=== PATIENT | male | born 1965 | race Caucasian/White ===

== ENCOUNTER 2025-07-27 18:14 | Inpatient (IN) | payer BC, SELFPAY ==
[2025-07-27] VITALS (8 sets, daily range): BP systolic 60–176; BP diastolic 68–94; BMI 26.3; BMI 25.4
--- NOTE | 2025-07-27 12:49 | ED.GENMED ---
History of Present Illness
<Kareen Torres PA-C - Last Filed: 07/27/25 14:49>
General
Chief Complaint: Abdominal Symptoms
Time Seen by Provider: 07/27/25 12:25
History of Present Illness
History of Present Illness:
see MDM
Phy Exam
<Kareen Torres PA-C - Last Filed: 07/27/25 14:49>
Physical Exam
Physical Exam:
see MDM
Course
<Kareen Torres PA-C - Last Filed: 07/27/25 14:49>
Orders/Labs/Results
Orders:
Orders
07/27/25 12:41
0.9% Sodium Chloride 1000 ml [Nss] 1,000 ml IV BOLUS
Piperacillin/Tazo 3.375 Gram [Zosyn] 3.375 gram in 50 ml IV NOW
07/27/25 12:55
Complete Blood Count/With Diff Urgent
Comprehensive Metabolic Panel Urgent
Lipase Urgent
07/27/25 13:51
CT Abd/Pel (IV only)-[facility] only Urgent
Comment:
Reason For Exam: acute kemar, concerning US; requested by surgery
07/27/25 Dinner
Regular
At Your Request: Full Participation
07/27/25 15:25
PT/INR [Prothrombin Time] Urgent
Comment: [facility] procedure
07/27/25 16:10
Fentanyl Citrate/Pf [Sublimaze] 100 mcg .ROUTE .STK-MED ONE
Midazolam HCl [Versed] 2 mg .ROUTE .STK-MED ONE
07/27/25 16:12
Lidocaine 2% [Xylocaine 2% Mdv] 20 ml .ROUTE .STK-MED ONE
07/27/25 16:30
Fluid Culture with Gram Stain Routine
ZAINA Source: Bile
Specimen Description:
Date Specimen was Collected: 07/27/25
Time Specimen was Collected: 16:30
Comment: intraprocedure cholecystostomy tube placement
07/27/25 16:42
Activity As Directed
Activity Level: Bedrest for limited time
Bedrest duration in hours then activity as indicated above:: 1
Comment: after bedrest then resume previous activity orders
Drains As Directed
Type: Cholecystostomy
To gravity: Yes
Comment: record output from tube every shift
Intake/ Output As Directed
Frequency: q12h
Comment: RECORD TUBE OUTPUT EVERY SHIFT
Surgical Procedure As Directed
Surgical Procedure: kemar tube
Vital Signs As Directed
Frequency: Other
Additional Instructions:: q15min x4, q30min x2, q1h x2 then routine if stable
07/27/25 16:43
Wound Care As Directed
Location of Wound: RUQ
Treatment of Wound: Change dressing q3days PRN. Clean round the tube with sterile gauze and sterile 0.9%
sodium chloride. Dress with drain sponge/ 4x4's and tape. Position tube so it does not
kink.
If tube falls out cover site with gauze/tegaderm then call [facility] at ext [phone] between
[phone] Sunday-Sunday. Schedule replacement ALAN. Call hospital heater planer operator after hours
and weekends and ask for Interventional Radiologist sales and distribution clerk to be beeped.
Any questions please call [facility] at ext [phone]
07/27/25 17:41
Admit Patient As Directed
Co-Sign Provider:
Level of Care: Inpatient admission
Assign to:: Medical/Surgical
Physician / Group: Dr. Gabriel
Diagnosis: Acute cholecystitis
Reason for Hospitalization: Acute cholecystitis
Expected length of stay greater than two midnights?: Yes
ELOS- Estimated Length of Stay in days: 2
I certify the patient meets the requirements for IP care: Yes
Code Status As Directed
Resuscitation Status: Full Code
Acetaminophen [Tylenol] 650 mg PO Q4HPRN PRN
HYDROmorphone [Dilaudid] 0.5 mg IV Q2HPRN PRN
Ondansetron Injectable [Zofran] 4 mg IV Q6HPRN PRN
Activity As Directed
Activity Level: Out of Bed-Early Mobility
Drains As Directed
Type: Biliary
To gravity: Yes
Intake/ Output As Directed
Frequency: Per unit guidelines
Vital Signs As Directed
Frequency: Per unit guidelines
PRN Pain Medication Management As Directed
May give lesser potent ordered pain med per pt: Yes
preference::
Protocol:: Medication orders for pain may be administered in a
manner that supports deferring to patient preference
when the pt is:
- Requesting an ordered lesser potent pain medication.
Least to most potent pain medications are defined
as: acetaminophen < NSAID < tramadol < opioids
(morphine, oxycodone, hydromorphone).
- Requesting a lesser dose of the same medication IF
ORDERED.
- Requesting a less intrusive route of administration
if both routes are prescribed by the provider (PO <
IV).
07/27/25 17:42
Rx Incentive Spirometry [RESP] Routine
Frequency: q1h while awake
# of times per hour: 10
DX Deep Vein Thrombosis Video Routine
07/27/25 18:00
Enoxaparin Sodium [Lovenox] 40 mg SC QPM
07/27/25 20:00
Piperacillin/Tazo 3.375 Gram [Zosyn] 3.375 gram in 50 ml IV Q6H
07/28/25 06:00
Complete Blood Count/With Diff IN AM
Comprehensive Metabolic Panel IN AM
Abnormal Lab Results
07/27/25
12:55
MPV 10.6 H fL
(7.4-10.4)
Glucose 102 H mg/dl
(70-99)
07/27/25 12:55
07/27/25 12:55
Vital Signs
Initial and Last Documented VS:
Initial Vital Signs
Temp Pulse Resp BP Pulse Ox
97.8 F 56 16 176/86 98
07/27/25 12:13 07/27/25 12:13 07/27/25 12:13 07/27/25 12:13 07/27/25 12:13
Last Documented Vital Signs
Temp Pulse Resp BP Pulse Ox
97.9 F 59 16 126/68 99
07/27/25 16:55 07/27/25 18:00 07/27/25 18:00 07/27/25 18:00 07/27/25 18:00
<Cooper Green, - Last Filed: 07/27/25 20:43>
Orders/Labs/Results
Orders:
Orders
07/27/25 12:41
0.9% Sodium Chloride 1000 ml [Nss] 1,000 ml IV BOLUS
Piperacillin/Tazo 3.375 Gram [Zosyn] 3.375 gram in 50 ml IV NOW
07/27/25 12:55
Complete Blood Count/With Diff Urgent
Comprehensive Metabolic Panel Urgent
Lipase Urgent
07/27/25 13:51
CT Abd/Pel (IV only)-[facility] only Urgent
Comment:
Reason For Exam: acute kemar, concerning US; requested by surgery
07/27/25 Dinner
Regular
At Your Request: Full Participation
07/27/25 15:25
PT/INR [Prothrombin Time] Urgent
Comment: [facility] procedure
07/27/25 16:10
Fentanyl Citrate/Pf [Sublimaze] 100 mcg .ROUTE .STK-MED ONE
Midazolam HCl [Versed] 2 mg .ROUTE .STK-MED ONE
07/27/25 16:12
Lidocaine 2% [Xylocaine 2% Mdv] 20 ml .ROUTE .STK-MED ONE
07/27/25 16:30
Fluid Culture with Gram Stain Routine
ZAINA Source: Bile
Specimen Description:
Date Specimen was Collected: 07/27/25
Time Specimen was Collected: 16:30
Comment: intraprocedure cholecystostomy tube placement
07/27/25 16:42
Activity As Directed
Activity Level: Bedrest for limited time
Bedrest duration in hours then activity as indicated above:: 1
Comment: after bedrest then resume previous activity orders
Drains As Directed
Type: Cholecystostomy
To gravity: Yes
Comment: record output from tube every shift
Intake/ Output As Directed
Frequency: q12h
Comment: RECORD TUBE OUTPUT EVERY SHIFT
Surgical Procedure As Directed
Surgical Procedure: kemar tube
Vital Signs As Directed
Frequency: Other
Additional Instructions:: q15min x4, q30min x2, q1h x2 then routine if stable
07/27/25 16:43
Wound Care As Directed
Location of Wound: RUQ
Treatment of Wound: Change dressing q3days PRN. Clean round the tube with sterile gauze and sterile 0.9%
sodium chloride. Dress with drain sponge/ 4x4's and tape. Position tube so it does not
kink.
If tube falls out cover site with gauze/tegaderm then call [facility] at ext [phone] between
[phone] Sunday-Sunday. Schedule replacement ALAN. Call hospital heater planer operator after hours
and weekends and ask for Interventional Radiologist sales and distribution clerk to be beeped.
Any questions please call [facility] at ext [phone]
07/27/25 17:41
Admit Patient As Directed
Co-Sign Provider:
Level of Care: Inpatient admission
Assign to:: Medical/Surgical
Physician / Group: Dr. Gabriel
Diagnosis: Acute cholecystitis
Reason for Hospitalization: Acute cholecystitis
Expected length of stay greater than two midnights?: Yes
ELOS- Estimated Length of Stay in days: 2
I certify the patient meets the requirements for IP care: Yes
Code Status As Directed
Resuscitation Status: Full Code
Acetaminophen [Tylenol] 650 mg PO Q4HPRN PRN
HYDROmorphone [Dilaudid] 0.5 mg IV Q2HPRN PRN
Ondansetron Injectable [Zofran] 4 mg IV Q6HPRN PRN
Activity As Directed
Activity Level: Out of Bed-Early Mobility
Drains As Directed
Type: Biliary
To gravity: Yes
Intake/ Output As Directed
Frequency: Per unit guidelines
Vital Signs As Directed
Frequency: Per unit guidelines
PRN Pain Medication Management As Directed
May give lesser potent ordered pain med per pt: Yes
preference::
Protocol:: Medication orders for pain may be administered in a
manner that supports deferring to patient preference
when the pt is:
- Requesting an ordered lesser potent pain medication.
Least to most potent pain medications are defined
as: acetaminophen < NSAID < tramadol < opioids
(morphine, oxycodone, hydromorphone).
- Requesting a lesser dose of the same medication IF
ORDERED.
- Requesting a less intrusive route of administration
if both routes are prescribed by the provider (PO <
IV).
07/27/25 17:42
Rx Incentive Spirometry [RESP] Routine
Frequency: q1h while awake
# of times per hour: 10
DX Deep Vein Thrombosis Video Routine
07/27/25 18:00
Enoxaparin Sodium [Lovenox] 40 mg SC QPM
07/27/25 20:00
Piperacillin/Tazo 3.375 Gram [Zosyn] 3.375 gram in 50 ml IV Q6H
07/28/25 06:00
Complete Blood Count/With Diff IN AM
Comprehensive Metabolic Panel IN AM
Abnormal Lab Results
07/27/25
12:55
MPV 10.6 H fL
(7.4-10.4)
Glucose 102 H mg/dl
(70-99)
07/27/25 12:55
07/27/25 12:55
Vital Signs
Initial and Last Documented VS:
Initial Vital Signs
Temp Pulse Resp BP Pulse Ox
97.8 F 56 16 176/86 98
07/27/25 12:13 07/27/25 12:13 07/27/25 12:13 07/27/25 12:13 07/27/25 12:13
Last Documented Vital Signs
Temp Pulse Resp BP Pulse Ox
97.9 F 59 16 126/68 99
07/27/25 16:55 07/27/25 18:00 07/27/25 18:00 07/27/25 18:00 07/27/25 18:00
<Kareen Torres PA-C - Last Filed: 07/27/25 14:49>
MDM/Problems Addressed
Differential Diagnosis Includes:
se MDM
MDM/Problems Addressed:
Note:
CHIEF COMPLAINT(S)
Abdominal pain and vomiting.
HISTORY OF PRESENT ILLNESS
The patient is a 59-year-old male healthy no [facility] coming from outpatient who presents with abdominal pain and vomiting. Approximately 10 days ago, the patient experienced an episode of abdominal pain followed by vomiting, which he initially
attributed to something he ate. The pain subsided after vomiting, and he was able to return to sleep. The following day he was asymptomatic. Ten days later, after a meal including chicken pot pie, the patient experienced discomfort and pain in the
abdomen around 10 PM, with subsequent vomiting starting around 11:30 PM. The vomiting continued with bile being expelled initially, followed by dinner contents and then bile again. The pain described was dull rather than sharp, and the patient
experienced relief by moving around, suggesting possible gas or pressure-related discomfort. The patient reported no fever or chills but mentioned cold hands and feet. He did not take any medication for pain but chewed Pepto-Bismol during the
episode. Currently, the patient reports being asymptomatic, except for mild discomfort during an ultrasound. He denies any significant medical history or regular use of medications.
PAST MEDICAL AND SURGICAL HISTORY
The patient reports no history of medical problems and is not currently on medication.
PHYSICAL EXAM
GENERAL: Alert , in no apparent distress very well-appearing
EYE: pupils equal and reactive
NECK: Supple
ENT: o/p clr, mmm.
CARDIAC: Regular rate and rhythm .
LUNGS: Clear breath sounds bilaterally, no acute respiratory distress, no wheezes/rales/rhonchi
ABDOMEN: Soft, no significant right upper quadrant tenderness, negative Bates sign, no r/g, no cvat, normal bowel sounds
NEUROLOGICAL: Alert and oriented, no focal neuro deficits
SKIN: Warm and dry, skin intact.
MUSCULOSKELETAL: No edema, well perfused. neg gamal's sign
PSYCH: Normal and appropriate interaction.
- Nursing notes reviewed and vital signs reviewed.
PLAN
- Arrange for an urgent consultation with the on-call general surgeon to evaluate for cholecystectomy due to findings suggestive of acute cholecystitis with gallstones and gallbladder wall thickening.
- Order a computed tomography (CT) scan of the abdomen to assess the extent of inflammation and to rule out complications.
- Initiate empiric intravenous antibiotics to address suspected gallbladder infection.
- Administer intravenous fluids for rehydration and to maintain hydration status until possible surgical intervention.
- Keep the patient nil per os (NPO) in anticipation of possible surgical intervention within the next 24 hours.
DIFFERENTIAL DIAGNOSIS
The Differential Diagnosis includes, in no particular order and is not limited to:
1. Acute cholecystitis
2. Biliary colic
3. Gastritis
4. Pancreatitis
5. Peptic ulcer disease
6. Gallstone ileus
7. Gastroenteritis
8. Hepatic abscess
9. Perforated viscus
10. Gastroesophageal reflux disease (GERD)
59-year-old healthy male here from outpatient ultrasound for signs of acute cholecystitis on ultrasound. He is first had pain 10 days ago with vomiting but that resolved for all this time until last night. He had recurrence of right upper quadrant
pain and vomiting several times overnight. Patient now feels much better. His outpatient was ordered by his primary care doctor. Findings are concerning for acute cholecystitis with gallbladder wall thickening, gallstones and Js cholecystic
fluid. I did speak with Dr. Gabriel who is the on-call surgeon who requested a CT scan due to the severity of the appearance on ultrasound. IV Zosyn and IV fluids, n.p.o.
CT done, await read but I did speak with the surgeon on-call who said we could admit to his service. Patient will likely require an IR drain before cholecystectomy
<Kareen Torres PA-C - Last Filed: 07/27/25 14:49>
*Pulse Oximetry
SaO2: 98
Oxygen Mode of Delivery: Room air
Patient hypoxic: no (98)
*Critical Care Note
Total Time (30-74mins, 75-104mins- exclusive of procedures): Not Applicable
ED Attending Note
<Kareen Torres PA-C - Last Filed: 07/27/25 14:49>
-
Portions of this chart may have been created with voice recognition software.� Occasional wrong word or��sound alike� substitutions may have occurred due to the inherent limitations of voice recognition software.
<Cooper Green DO - Last Filed: 07/27/25 20:43>
ED Attending Note
I performed the substantive portion of visit, reviewed & personally made and approve the management plan that is documented in note by myself or TRESSA.: Yes
ED Attending Note:
59-year-old male. Imaging concerning for gallbladder pathology. Consult surgery. Dispo per surgery
Discharge Plan
Departure
Patient Disposition: Admit
Date of Disposition: 07/27/25
Time of Disposition: 14:46
Admit to: Med/Surg
Admit to doctor: angella
Presentation/result/management discussed w/ accepting MD/DO: angella
Condition: Fair
Covid-19: Not Applicable
Discharge Problem:
Acute cholecystitis
Interventions
Interventions:
*Risk Screen - Suicide Last Done: 07/27/25 12:13
*General Assessment Last Done: 07/27/25 12:13
*Neglect/Abuse Screening Last Done: 07/27/25 12:13
*ED- Fall Risk Assessment Last Done: 07/27/25 12:59
*ED COVID-19 Vaccine History Last Done: 07/27/25 19:20
*ED Influenza Vaccine History Last Done: 07/27/25 12:59
*Nursing Disposition Last Done: 07/27/25 19:22
PJ-Csirfv-Mngwpmtxzi Assessment Last Done: 07/27/25 13:02
Discharge Date and Time
Discharge Date/Time: 07/27/25 19:23
[2025-07-27] MEDS: ZOSYN 50 IV ×2 (12:55→20:42)
[2025-07-27] MEDS: NSS 1000 IV (12:55)
[2025-07-27 13:18] LABS: Hematocrit 43.3 % (39.0-52.0); Hemoglobin 14.5 g/dL (13.0-18.0); Mean Corp Hgb Conc. 33.5 g/dL (33.0-37.0); Mean Corpuscular Volume 88.4 fL (80.0-94.0); Nucleated Red Blood Cells % 0 % (-); Platelet Count 253 10^3/uL (130-400); Red Cell Dist. Width 13.1 % (11.5-14.5)
[2025-07-27 13:26] LABS: ALT (SGPT) 19 U/L (0-50); AST (SGOT) 20 U/L (17-59); Albumin 4.1 g/dl (3.5-5.0); Alkaline Phosphatase 65 U/L (38-126); Blood Urea Nitrogen 12 mg/dl (9-20); Calcium 9.0 mg/dl (8.4-10.2); Carbon Dioxide 30 mmol/L (22-30); Chloride 103 mmol/L (98-107); Estimated Creatinine Clearance 84 ml/min; Glucose 102 mg/dl (70-99); Lipase 119 U/L (23-300); Potassium 3.9 mmol/L (3.5-5.1); Sodium 136 mmol/L (135-145); Total Protein 6.4 g/dl (6.3-8.2); eGFR > 60.00
[2025-07-27 15:42] LABS: INR 1.03; PT 13.9 Sec (11.4-14.6)
--- NOTE | 2025-07-27 16:44 | W.PN.UPDATE ---
Update Note
Progress Note Update
- US/fluoro guided placement of 8.5F kemar tube
- Moderately distended gb on ultrasound. Subcostal approach. Aspirated dark bilious fluid, samples sent to the lab.
- Pt tolerated well.
[2025-07-27] MEDS: NORMOSOL-R/PLASMALYTE-A 1000 IV (20:47)
--- NOTE | 2025-07-27 21:46 | TRANSFER ---
Received pt from ED at 1920 dx of acute kemar with RUQ kemar drain to gravity. Drain w bilious output. Pt denied pain/discomfort. VS WNL. Call valiente within reach, bed in lowest position. Family at the bedside.
[2025-07-28] MEDS: ZOSYN 50 IV ×2 (02:14→08:49)
[2025-07-28 07:21] LABS: Hematocrit 42.5 % (39.0-52.0); Hemoglobin 14.0 g/dL (13.0-18.0); Mean Corp Hgb Conc. 32.9 g/dL (33.0-37.0); Mean Corpuscular Volume 87.6 fL (80.0-94.0); Nucleated Red Blood Cells % 0 % (-); Platelet Count 207 10^3/uL (130-400); Red Cell Dist. Width 13.4 % (11.5-14.5)
[2025-07-28 08:03] VITALS: BP 131/78
--- NOTE | 2025-07-28 11:11 | W.PN.GS2 ---
Today's Communication / Plan
-
DC
Assessment / Plan
-
59M PPD1 s/p perc kemar tube for ACC
AFVSS, clinically improved, meets criteria for DC home
Drain care instruction providd by nursing
OK for DC
Subjective Data
-
Date of Service: July 28, 2025
AFVSS, ambulating, voiding, anna PO, pain controlled, denies n/v
Objective Data
-
Intake and Output
07/27/25 07/28/25 07/29/25
06:59 06:59 06:59
Intake Total 645 / 645 50 / 50
Output Total 50 / 50
Balance 595 / 595 50 / 50
Intake:
IV fluids (Total) 545 / 545
IV piggybacks 100 / 100 50 / 50
Output:
Drain Output (Total) 50 / 50
Right Upper Abdomen Biliary 50 / 50
Placed in IR
Other:
Number of approximated LARGE 1
amounts of urine
Vital Signs
Temp Pulse Resp BP Pulse Ox
97.9 F 64 16 131/78 99
07/28/25 08:03 07/28/25 08:03 07/28/25 08:03 07/28/25 08:03 07/28/25 08:03
Lab Results
07/28/25 06:21
07/27/25 12:55
Calcium 9.0 mg/dl (8.4-10.2) 07/27/25 12:55
Total Bilirubin 0.8 mg/dl (0.2-1.3) 07/27/25 12:55
AST 20 U/L (17-59) 07/27/25 12:55
ALT 19 U/L (0-50) 07/27/25 12:55
Alkaline Phosphatase 65 U/L (38-126) 07/27/25 12:55
Total Protein 6.4 g/dl (6.3-8.2) 07/27/25 12:55
Albumin 4.1 g/dl (3.5-5.0) 07/27/25 12:55
Physical Exam
-
Gen: NAD
Abd: soft, minimal ttp. drain with brown liquid output with sediment
Patient has a madrigal catheter: No
Patient has a central line: No
--- NOTE | 2025-07-28 11:12 | W.DS.TRANS ---
DC Summary - Armature Winder
-
Discharge Instructions:
Discharge Diagnosis/Procedures Acute cholecystitis
Diet No restrictions
Activity No strenuous activity
Driving Restrictions No driving for 24 hours
Bathing Restrictions OK to Shower
Wound Care Folow nursing directions for drain/wound care
Instructions:
Stand-Alone Forms:
Changes to Home Medications: No
Discharge Medications:
DC Medications w/original date entered in [employer]
No Meds [No Current Medications] 07/27/25
Home Medication Changes
Pending Results: No
--- NOTE | 2025-07-28 11:16 | CM ---
CM met with pt and spouse bedside- dc order noted
Pt is s/p perc kemar tube placement
Plan to follow up outpt with surgery
Pt and sposue declined VN_ noted they can manage drain care
Nursing will provide instructions
Pt maintains independence
N dc needs noted
Discharge Disposition- home, no needs
[2025-07-28 11:44] VITALS: BP 135/53
== END 2025-07-28 12:30 | disposition home or self-care (01) | DRG 446 ==
LOC: 2 SOUTH 18:14
PROVIDERS: Physician Assistant; Radiology Diagnostic Radiology; ADMITTING PHYSICIAN Surgery; EMERGENCY PHYSICIAN Emergency Medicine
PROC: 0F9430Z Drainage of Gallbladder with Drainage Device, Percutaneous Approach (ICD-10-PCS; 2025-07-27)
DX: K80.00 Calculus of gallbladder with acute cholecystitis without obstruction (principal)
CPT/HCPCS: 47490; 74177; 76700; 80053; 83690; 85025; 85610; 87015; 87070; 87205; 96361; 96374; 99152; 99153; 99285; Q9967

== ENCOUNTER → 2025-08-12 12:47 | Outpatient (REF) | payer BC, SELFPAY ==
--- NOTE | 2025-08-12 13:07 | SUR.OPER ---
[facility] note: Patient arrived to [facility] from Dr. Gabriel's office to have stopcock placed for Choletube. Per patient, Dr. Rodrigez wants patient to start flushing choletube. Stopcock applied, teaching done with patient and regarding how to flush and
when to contact Dr. Rodrigez. Dr. Gabriel to order saline flushes. both verbalized understanding. new drain care instructions provided.
== END ==
LOC: RADI 12:47
PROVIDERS: ATTENDING PHYSICIAN Radiology Diagnostic Radiology; REFERRING PHYSICIAN Surgery
DX: Z43.4 Encounter for attention to other artificial openings of digestive tract (principal)

== ENCOUNTER 2025-08-26 09:42 | Emergency (ER) | payer BC, SELFPAY ==
[2025-08-26 09:54] VITALS: BP 195/95
--- NOTE | 2025-08-26 10:21 | ED.GENMED ---
History of Present Illness
General
Chief Complaint: Post Operative Problem(s)
Time Seen by Provider: 08/26/25 10:15
History of Present Illness
History of Present Illness:
FOCUSED PAST MEDICAL HISTORY
- Cholecystitis
REVIEW OF OLD RECORDS
- The patient was diagnosed with acute calculous cholecystitis 07/27/2025 and had percutaneous drainage placed by interventional radiology
Note:
CHIEF COMPLAINT(S)
Recurring abdominal pain and leakage from the drainage tube.
HISTORY OF PRESENT ILLNESS
The patient is a 59-year-old male with a history of cholecystitis and subsequent placement of a percutaneous biliary drain by interventional radiology at the end of July, as the gallbladder was too inflamed for removal. The patient is scheduled
for cholecystectomy on October 01. Initially, there was significant drainage from the tube, which decreased significantly within about a week post-placement.
On August 12, following an intervention by Dr. Gabriel involving the infusion of 10 ccs of saline into the drain, the patient experienced dizziness. The episode was characterized by chills and an inability to get warm, and the patient reported it
took approximately three days to return to baseline. Since then, the daily drainage volume settled around 100-110 ccs of mostly clear fluid with occasional slough, which has reduced to about 80 ccs.
Recently, there has been a reduction in drainage volume again, prompting the patients doctor to recommend home saline flushes to maintain patency. During a flush administered last night with 5 ccs of saline, the patient noted lower abdominal pain
overnight, but reported no chills. This morning, upon changing the dressing, the patient observed discolored gauze and a slow drip from the insertion site, indicating possible leakage. The patient expressed concern about possible dislodgement of the
tube, as it appeared slightly more exposed than before. This mornings saline flush did not yield significant output, unlike previous flushes.
PHYSICAL EXAM
General: Alert, no acute distress.
Skin: Some irritation noted related to the tape the abdominal wall
Head: Normocephalic, atraumatic.
Neck: Supple, trachea midline.
Eyes, Ears, Nose, Mouth, and Throat: Oral mucosa moist.
Cardiovascular: Normal peripheral perfusion, no edema.
Respiratory: Respirations are non-labored.
Gastrointestinal: There is some very mild tenderness to palpation at the insertion site of the tube on the right side of the abdominal wall, it is currently measuring at 20 cm
Back: Normal range of motion, normal alignment.
Musculoskeletal: Normal range of motion, normal strength.
Neurological: Alert and oriented to person, place, time, and situation, no focal neurological deficit observed.
Psychiatric: Cooperative, appropriate mood and affect.
PLAN
- Arrange for a consultation with interventional radiology to evaluate the position and function of the drainage tube.
- Discuss potential imaging (CT scan) with interventional radiology to assess the bile duct and gallbladder drain.
- Conduct blood work to rule out infection and assess general wellness.
- Consider further flush procedures only under medical guidance if occlusion persists or symptoms escalate.
DIFFERENTIAL DIAGNOSIS
The Differential Diagnosis includes, in no particular order and is not limited to:
- Biliary drain malfunction or occlusion
- Cholecystitis
- Biliary leakage
- Infection related to the drain
- Catheter displacement
- Peritonitis
- Abdominal wall abscess
- Gallstone-related complications
- Diverticulitis
- Biliary septicemia
RADIOLOGY
- I reviewed the images from the interventional radiology procedure
LABS
- White count 13.0, LFTs normal, normal renal function
SUMMARY OF ENCOUNTER
The patient presented to the emergency department with recurring abdominal pain and leakage from the drainage tube. The patients history includes cholecystitis and the placement of a percutaneous biliary drain. Recently, drainage volume decreased,
which was accompanied by lower abdominal pain and possible leakage from the insertion site. Interventional radiology was consulted and was able to successfully restore the tubes patency.
MANAGEMENT OF THE PATIENTS CARE WAS DISCUSSED WITH
I discussed the case with both general surgery and interventional radiology. Dr. Gabriel was notified about the successful intervention.
PLAN
Arrange for follow-up consultation with interventional radiology to reassess the position and function of the drainage tube. Recommend further monitoring of the drainage volume and patency. Discuss potential imaging with interventional radiology to
assess the bile duct and gallbladder drain.
MEDICAL DECISION MAKING
-Complexity of Data Reviewed: Chronic conditions affecting care include the patients history of cholecystitis and subsequent biliary drain placement. Differential diagnoses include biliary drain malfunction or occlusion, cholecystitis, biliary
leakage, infection related to the drain, catheter displacement, peritonitis, abdominal wall abscess, gallstone-related complications, diverticulitis, and biliary septicemia.
-Data:
Category 1
Discussion with general surgery and interventional radiology was conducted to resolve the patients current drainage tube malfunction.
-Risk:
Consideration of Admission/Observation: Escalation of care including admission/observation was considered given the complexity and risk of the patients presenting complaint, exam findings, and their underlying comorbidities. However, ultimately, the
patient was managed successfully with the intervention performed by interventional radiology and deemed safe for outpatient management with close follow-up.
DIAGNOSIS
Obstruction of percutaneous cholecystostomy Tube (ICD-10-CM: T85.698A)
UPDATE
- Discussed case with Dr. Gabriel who initially wanted CT imaging with injection of the tube however in discussion with Dr. Garcia, recommendation is for tube study by IR
- Tube was opened by Dr. Garcia successfully; he did note that the cystic duct is not patent
- Patient will continue to irrigate with saline at home daily
Phy Exam
Physical Exam
Physical Exam:
See HPI
Course
Orders/Labs/Results
Orders:
Orders
08/26/25 09:47
EKG [Electrocardiogram (*1)] Urgent
Reason for Study: Shortness of Breath
EKG- Treatment ONCE
08/26/25 10:31
Complete Blood Count/With Diff Urgent
Comprehensive Metabolic Panel Urgent
08/26/25 10:50
Consult Interventional Radiology [[facility] CONSULT] Urgent
Consulting Provider: Angelo Garcia
Was physician already notified: Yes
Procedure being ordered, including laterality if applicable: eval perc kemar tube
Acknowledgement that appropriate orders are entered: Yes
Abnormal Lab Results
08/26/25
10:31
WBC 13.0 H 10^3/uL
(4.8-10.8)
Absolute Neuts (auto) 11.1 H 10^3/uL
(1.4-6.5)
Neutrophils % 85.5 H %
(42.2-75.2)
Lymphocytes % 9.1 L %
(20.5-51.1)
Glucose 119 H mg/dl
(70-99)
08/26/25 10:31
08/26/25 10:31
Vital Signs
Initial and Last Documented VS:
Initial Vital Signs
Temp Pulse Resp BP Pulse Ox
36.5 C 77 26 195/95 100
08/26/25 09:54 08/26/25 09:54 08/26/25 09:54 08/26/25 09:54 08/26/25 09:54
Last Documented Vital Signs
Temp Pulse Resp BP Pulse Ox
36.9 C 82 16 146/82 99
08/26/25 12:07 08/26/25 12:57 08/26/25 12:57 08/26/25 12:07 08/26/25 12:57
*Pulse Oximetry
SaO2: 100
Oxygen Mode of Delivery: Room air
Patient hypoxic: no
*Critical Care Note
Total Time (30-74mins, 75-104mins- exclusive of procedures): Not Applicable
ED Attending Note
-
Portions of this chart may have been created with voice recognition software.� Occasional wrong word or��sound alike� substitutions may have occurred due to the inherent limitations of voice recognition software.
Discharge Plan
Departure
Patient Disposition: Home (Routine Discharge)
Date of Disposition: 08/26/25
Time of Disposition: 12:47
Patient with high blood pressure during this ER visit?: Yes
Discharge Problem:
Encounter for biliary drainage tube placement
Prescriptions:
No Action
No Current Medications
0
Referrals:
Lloyd Buck CRNP [Family Provider]
Soto Gabriel MD [Active, Surgical]
Activity Restrictions/Additional Instructions:
Interventional radiology did open the tube and notes that is in good position. Dr. Gabriel is aware. Return if worse or other concerns. White count is slightly high however your liver numbers are normal.
Interventions
Interventions:
*General Assessment Last Done: 08/26/25 09:54
*Neglect/Abuse Screening Last Done: 08/26/25 09:54
*ED COVID-19 Vaccine History Last Done: 08/26/25 10:15
*ED Influenza Vaccine History Last Done: 08/26/25 10:15
[facility] Risk Assessment Tool Last Done: 08/26/25 10:15
*Risk Screen - Suicide (C-SSRS) Last Done: 08/26/25 09:54
*Nursing Disposition Last Done: 08/26/25 12:54
ED-Skin Assessment Last Done: 08/26/25 10:35
Discharge Date and Time
Discharge Date/Time: 08/26/25 13:00
Print Language: TELUGU
[2025-08-26 10:44] LABS: Hematocrit 42.4 % (39.0-52.0); Hemoglobin 14.0 g/dL (13.0-18.0); Mean Corp Hgb Conc. 33.0 g/dL (33.0-37.0); Mean Corpuscular Volume 86.4 fL (80.0-94.0); Nucleated Red Blood Cells % 0 % (-); Platelet Count 324 10^3/uL (130-400); Red Cell Dist. Width 12.8 % (11.5-14.5)
[2025-08-26 11:03] LABS: ALT (SGPT) 33 U/L (0-50); AST (SGOT) 26 U/L (17-59); Albumin 4.0 g/dl (3.5-5.0); Alkaline Phosphatase 69 U/L (38-126); Blood Urea Nitrogen 11 mg/dl (9-20); Calcium 9.0 mg/dl (8.4-10.2); Carbon Dioxide 26 mmol/L (22-30); Chloride 103 mmol/L (98-107); Glucose 119 mg/dl (70-99); Potassium 4.2 mmol/L (3.5-5.1); Sodium 136 mmol/L (135-145); Total Protein 6.4 g/dl (6.3-8.2); eGFR > 60.00
[2025-08-26 12:07] VITALS: BP 146/82
[2025-08-26 12:57] VITALS: BP_SYST 82
== END 2025-08-26 13:00 | disposition home or self-care (01) ==
LOC: EMR 09:42
PROVIDERS: CONSULT PHYSICIAN Radiology Vascular & Interventional Radiology; EMERGENCY PHYSICIAN Emergency Medicine
DX: T85.698A Other mechanical complication of other specified internal prosthetic devices, implants and grafts, initial encounter (principal); Y92.9 Unspecified place or not applicable
CPT/HCPCS: 99284; 47531; 80053; 85025; 93005